=== PATIENT | female | born 2000 | race Two or more races ===

== ENCOUNTER 2021-09-17 03:35 | Inpatient (IN) | payer MEDICAID ==
[~2021-09-17] VITALS: Ht 162.6 cm; Wt 77.6 kg
[2021-09-17] MEDS ORDERED: PREN-96 PO (04:03)
[2021-09-17] MEDS ORDERED: PROMETHAZINE HCL 25 MG/ML 1ML IV PRN ×2 (05:15)
[2021-09-17] MEDS ORDERED: BUTORPHANOL TARTRATE 2 MG/1 ML VIAL IV PRN ×4 (05:15)
[2021-09-17] MEDS ORDERED: LACT. RINGERS/OXYTOCIN 20UNITS 500 ML IV ONE ×2 (05:15→05:45)
[2021-09-17] MEDS ORDERED: DERMOPLAST 60ML BOTTLE TOP PRN ×2 (05:15)
[2021-09-17] MEDS ORDERED: LIDOCAINE 2%HCL (LOCAL ANESTH.) INJ 10ml MDV IJ PRN ×2 (05:15)
[2021-09-17] MEDS ORDERED: WITCH HAZEL-GLYCERIN PAD TOP PRN ×2 (05:15)
[2021-09-17] MEDS ORDERED: PHISODERM TOP SOLN 240ML BTL TOP PRN ×2 (05:15)
[2021-09-17] MEDS ORDERED: LACTATED RINGER'S 1,000 ML IV SCH (05:15)
[2021-09-17 05:20] LABS: Basophils # (auto) 0.1 10 ^3/uL (0-0.2); Basophils % (auto) 0.7 % (0.0-2.0); Eosinophils # (auto) 0 10 ^3/uL (0-0.8); Eosinophils % (auto) 0.5 % (0.0-7.0); Hematocrit 38.5 % (36.0-46.0); Hemoglobin 13.4 g/dL (12.2-16.2); Lymphocytes # (auto) 2.2 10 ^3/uL (0.4-5.4); Lymphocytes % (auto) 23.2 % (10.0-50.0); Mean Corpuscular Hemoglobin 31.5 pg (28.0-32.0); Mean Corpuscular Hgb Conc. 34.7 g/dL (32.0-36.0); Mean Corpuscular Volume 90.6 fL (80.0-100.0); Monocytes # (auto) 0.7 10 ^3/uL (0-1.3); Monocytes % (auto) 7.7 % (0.0-12.0); Neutrophils # (auto) 6.6 10 ^3/uL (1.6-8.6); Neutrophils % (auto) 67.9 % (37.0-80.0); Nucleated Red Blood Cells % 0.1 %; Red Blood Cells 4.25 10^6/uL (4.0-5.20); Red Cell Distribution Width 13.7 % (11.8-14.3); White Blood Cell 9.7 10^3/uL (4.4-10.8)
[2021-09-17] MEDS ORDERED: miSOPROStol 50 MCG per PRE-CUT 1/2 TAB PO PRN (05:30)
[2021-09-17] MEDS: LACTATED RINGER'S 1,000 ML IV SCH ×3 (05:40→17:04)
[2021-09-17 05:59] LABS: Albumin 2.5 g/dL (3.4-5.0); BUN/Creatinine Ratio 12.8; Calcium 8.6 mg/dL (8.5-10.1); Potassium 4.3 mmol/L (3.5-5.1)
[2021-09-17 06:01] LABS: Alcohol, Urine < 3.0 mg/dL (0-10); Amphetamine Screen, Urine NEGATIVE (NEGATIVE); Barbiturate Scree,Urine NEGATIVE (NEGATIVE); Benzodiazephine Screen, Urine NEGATIVE (NEGATIVE); Cannabinoid Screen, Urine POSITIVE (NEGATIVE); Cocaine Screen, Urine NEGATIVE (NEGATIVE); Opiate Scree,Urine NEGATIVE (NEGATIVE); Phencyclidine Screen, Urine NEGATIVE (NEGATIVE)
[2021-09-17 06:02] LABS: Bilirubin, Total 0.2 mg/dL (0.2-1.0); Total Protein 6.7 g/dL (6.4-8.2)
[2021-09-17 06:14] LABS: Protein, Urine 26.7 mg/dL (0.0-11.9)
[2021-09-17 06:16] LABS: Uric Acid 6.3 mg/dL (2.6-6.0)
[2021-09-17 06:25] LABS: Urine Bacteria FEW /hpf (None Seen); Urine Blood Negative /uL (Negative); Urine Mucus FEW (None Seen); Urine WBC 15 /hpf (0 - 5)
[2021-09-17] MEDS ORDERED: LABETALOL HCL 200 MG TAB PO SCH ×2 (07:00→10:00)
[2021-09-17 07:30] LABS: INR 0.89 (0.9-1.15); Partial Thromboplastin Time 29.7 sec (23.6-33.0)
[2021-09-17] MEDS ORDERED: fentaNYL CITRATE 100 MCG/2 ML VL IV ONE (09:30)
[2021-09-17] MEDS ORDERED: ROPIVACAINE HCL 200 ML EPI SCH ×2 (09:30→11:30)
[2021-09-17] MEDS ORDERED: LACTATED RINGER'S 1,000 ML IV ONE (09:30)
[2021-09-17] MEDS ORDERED: ePHEDrine SULFATE 50 MG/ML AMP IV ONE (09:30)
[2021-09-17] MEDS ORDERED: NALOXONE HCL 0.4 MG/ML VIAL IV ONE (09:30)
[2021-09-17] MEDS ORDERED: TERBUTALINE SULFATE 1 MG/ML 1ML VIAL SC PRN (13:30)
[2021-09-17] MEDS ORDERED: LACT. RINGERS/OXYTOCIN 20UNITS 1,000 ML IV SCH (13:30)
[2021-09-18] MEDS ORDERED: GENTAMICIN SULF 80 MG/2 ML VIAL ONE (00:40)
[2021-09-18] MEDS ORDERED: GENTAMICIN SULFATE 120 MG in D5W 5% 100 ML IV ONE (00:45)
[2021-09-18] MEDS ORDERED: ACETAMINOPHEN 325 MG TAB PO ONE (00:45)
[2021-09-18] MEDS ORDERED: AMPICILLIN SOD 2GM INJ 2 GM in SODIUM CHL 0.9% 100 ML IV SCH ×2 (00:45→08:00)
[2021-09-18] MEDS ORDERED: AMPICILLIN SOD 1 GM VL ONE (00:47)
[2021-09-18] MEDS ORDERED: SODIUM CHLORIDE LOCK 10 ML ONE (00:48)
[2021-09-18] MEDS ORDERED: METHYLERGONOVINE MALEATE 0.2 MG/ML AMP IM ONE (03:08)
[2021-09-18] MEDS ORDERED: miSOPROStol 100 mcg TAB PR PRN (03:15)
[2021-09-18] MEDS ORDERED: miSOPROStol 100 mcg TAB SL PRN (03:15)
[2021-09-18] MEDS ORDERED: METHYLERGONOVINE MALEATE 0.2 MG/ML AMP IM PRN (03:15)
[2021-09-18] MEDS ORDERED: ONDANSETRON HCL 4 MG/2 ML VIAL ONE (04:02)
[2021-09-18] MEDS ORDERED: ONDANSETRON HCL 4 MG/2 ML VIAL IV PRN (04:15)
[2021-09-18] MEDS ORDERED: ACETAMINOPHEN 325 MG TAB PO PRN (06:00)
[2021-09-18] MEDS ORDERED: ONDANSETRON ODT 4 MG TAB PO PRN (06:00)
[2021-09-18 06:40] VITALS: BP 129/68
[2021-09-18] MEDS: IBUPROFEN 600 MG TAB PO PRN ×3 (08:05→20:59)
[2021-09-18] MEDS ORDERED: SOD CHL 0.45% 1,000 ML IV SCH (08:45)
[2021-09-18 11:00] VITALS: BP 116/78
[2021-09-18 15:00] VITALS: BP 113/73
[2021-09-18 19:00] VITALS: BP 107/74
[2021-09-18 23:08] VITALS: BP 109/74
[2021-09-19 02:43] VITALS: BP 121/74
[2021-09-19] MEDS ORDERED: IBU600T PO (05:43)
[2021-09-19 06:45] VITALS: BP 113/63
[2021-09-19] MEDS: IBUPROFEN 600 MG TAB PO PRN (08:22)
[2021-09-19 11:30] VITALS: BP 108/72
[2021-09-19] MEDS ORDERED: TETANUS-DIPTH-ACEL PERTUSSIS 0.5ML SYR Tdap IM ONE (11:30)
[2021-09-19] MEDS ORDERED: miSOPROStol 100 mcg TAB PO ONE (14:09)
[2021-09-19 14:10] VITALS: BP 108/72
== END 2021-09-19 14:10 | disposition home or self-care (01) | DRG 560 ==
LOC: LDRP 03:35 → OBSVTOIN 05:14 → LDRP 05:52
PROVIDERS: ADMIT Obstetrics & Gynecology Obstetrics; ATTEND Obstetrics & Gynecology Obstetrics
PROC: 3E0DXGC Introduction of Other Therapeutic Substance into Mouth and Pharynx, External Approach (ICD-10-PCS; 2021-09-17)
PROC: 10E0XZZ Delivery of Products of Conception, External Approach (ICD-10-PCS; principal; 2021-09-18)
PROC: 3E0R3BZ Introduction of Anesthetic Agent into Spinal Canal, Percutaneous Approach (ICD-10-PCS; 2021-09-18)
PROC: 00HU33Z Insertion of Infusion Device into Spinal Canal, Percutaneous Approach (ICD-10-PCS; 2021-09-18)
DX: O13.4 Gestational [pregnancy-induced] hypertension without significant proteinuria, complicating childbirth (principal); Z37.0 Single live birth; O41.1230 Chorioamnionitis, third trimester, not applicable or unspecified; O99.42 Diseases of the circulatory system complicating childbirth; O76 Abnormality in fetal heart rate and rhythm complicating labor and delivery; O69.81X0 Labor and delivery complicated by cord around neck, without compression, not applicable or unspecified; Z3A.39 39 weeks gestation of pregnancy; Z20.822 Contact with and (suspected) exposure to COVID-19
CPT/HCPCS: 36415; 59025; 59409; 62282; 80053; 80307; 81001; 81002; 82570; 83615; 84156; 84550; 85025; 85362; 85379; 85384; 85610; 85730; 86762; 86850; 86900; 86901; 87340; 90715; 94760; 96360; 96361; 96366; 96372; 96374; 96375; G0378; J2001; J2405; J2590; J7060

== ENCOUNTER 2022-10-03 00:53 | Inpatient (IN) | payer MEDICAID ==
[~2022-10-03] VITALS: Ht 162.6 cm; Wt 80.7 kg
[~2022-10-03 00:53] MED LIST: IBU600T PO; PREN-96 PO
[2022-10-03] MEDS ORDERED: LACTATED RINGER'S 1,000 ML IV ONE ×2 (01:15→03:30)
[2022-10-03] MEDS ORDERED: LACTATED RINGER'S 1,000 ML IV SCH ×2 (01:15→01:45)
[2022-10-03] MEDS ORDERED: PENICILLIN G POT 5MIL/D5 50ML 50 ML IV ONE ×2 (01:40→01:45)
[2022-10-03] MEDS ORDERED: WITCH HAZEL-GLYCERIN PAD TOP PRN (01:45)
[2022-10-03] MEDS ORDERED: PROMETHAZINE HCL 25 MG/ML 1ML IV PRN (01:45)
[2022-10-03] MEDS ORDERED: DERMOPLAST 60ML BOTTLE TOP PRN (01:45)
[2022-10-03] MEDS ORDERED: BUTORPHANOL TARTRATE 2 MG/1 ML VIAL IV PRN ×2 (01:45)
[2022-10-03] MEDS ORDERED: PHISODERM TOP SOLN 240ML BTL TOP PRN (01:45)
[2022-10-03] MEDS ORDERED: LACT. RINGERS/OXYTOCIN 20UNITS 500 ML IV ONE ×3 (01:45→05:45)
[2022-10-03] MEDS ORDERED: LIDOCAINE 2%HCL (LOCAL ANESTH.) INJ 20ML MDV IJ PRN (01:45)
[2022-10-03] MEDS ORDERED: miSOPROStol 100 mcg TAB SL PRN (02:00)
[2022-10-03 02:21] LABS: Urine Bacteria FEW /hpf (None Seen); Urine Mucus FEW (None Seen); Urine WBC 61 /hpf (0 - 5)
[2022-10-03 02:22] LABS: Urine Blood Trace /uL (Negative); Urine Specific Gravity 1.025 (1.001-1.035)
[2022-10-03 02:25] LABS: Albumin 2.3 g/dL (3.4-5.0); Calcium 8.7 mg/dL (8.5-10.1); Eosinophils # (auto) 0.1 10 ^3/uL (0-0.8); Lymphocytes # (auto) 1.8 10 ^3/uL (0.4-5.4); Lymphocytes % (auto) 18.6 % (10.0-50.0); Nucleated Red Blood Cells % 0.1 %
[2022-10-03 02:26] LABS: Alcohol, Urine < 3.0 mg/dL (0-10); Amphetamine Screen, Urine POSITIVE (NEGATIVE); Barbiturate Scree,Urine NEGATIVE (NEGATIVE); Benzodiazephine Screen, Urine NEGATIVE (NEGATIVE); Cannabinoid Screen, Urine POSITIVE (NEGATIVE); Cocaine Screen, Urine NEGATIVE (NEGATIVE)
[2022-10-03 02:27] LABS: Basophils # (auto) 0.2 10 ^3/uL (0-0.2); Basophils % (auto) 1.7 % (0.0-2.0); Bilirubin, Total 0.3 mg/dL (0.2-1.0); Eosinophils % (auto) 0.8 % (0.0-7.0); Hematocrit 32.7 % (36.0-46.0); Hemoglobin 10.8 g/dL (12.2-16.2); Mean Corpuscular Hemoglobin 26.4 pg (28.0-32.0); Mean Corpuscular Hgb Conc. 33.1 g/dL (32.0-36.0); Mean Corpuscular Volume 79.6 fL (80.0-100.0); Monocytes # (auto) 0.6 10 ^3/uL (0-1.3); Monocytes % (auto) 5.8 % (0.0-12.0); Neutrophils # (auto) 7.1 10 ^3/uL (1.6-8.6); Neutrophils % (auto) 73.1 % (37.0-80.0); Red Blood Cells 4.11 10^6/uL (4.0-5.20); Red Cell Distribution Width 16.2 % (11.8-14.3); Total Protein 6.5 g/dL (6.4-8.2); White Blood Cell 9.7 10^3/uL (4.4-10.8)
[2022-10-03 02:30] LABS: INR 0.91 (0.9-1.15); Partial Thromboplastin Time 26.3 sec (24.6-33.4)
[2022-10-03 02:34] LABS: Opiate Scree,Urine NEGATIVE (NEGATIVE); Phencyclidine Screen, Urine NEGATIVE (NEGATIVE)
[2022-10-03] MEDS ORDERED: LIDOCAINE HCL 2 %PF INJ 10ML AMP IJ ONE (03:30)
[2022-10-03] MEDS ORDERED: ROPIVACAINE HCL 200 ML EPI SCH (03:30)
[2022-10-03] MEDS ORDERED: fentaNYL CITRATE 100 MCG/2 ML VL IV ONE (03:30)
[2022-10-03] MEDS ORDERED: BETAMETHASONE ACET (30mg/5ml) 5ml Vial 6mg/ml IM ONE (03:30)
[2022-10-03] MEDS ORDERED: NALOXONE HCL 0.4 MG/ML VIAL IV ONE (03:30)
[2022-10-03] MEDS ORDERED: ePHEDrine SULFATE 50 MG/ML AMP IV ONE (03:30)
[2022-10-03] MEDS ORDERED: AMMONIA 0.33 ML INHALANT IN ONE (04:48)
[2022-10-03] MEDS ORDERED: ACETAMINOPHEN 325 MG TAB PO PRN (05:15)
[2022-10-03] MEDS ORDERED: IBUPROFEN 600 MG TAB PO PRN (05:15)
[2022-10-03] MEDS ORDERED: LACT. RINGERS/OXYTOCIN 20UNITS 1,000 ML IV SCH (05:45)
[2022-10-03] MEDS ORDERED: PENICILLIN G POTASSIUM 2,500,000 UNITS in D5W 5% 50 ML IV SCH (05:45)
[2022-10-03 07:15] VITALS: BP 105/70
[2022-10-03 11:15] VITALS: BP 110/66
[2022-10-03 14:54] VITALS: BP 110/63
[2022-10-03 19:00] VITALS: BP 117/64
[2022-10-04 03:15] VITALS: BP 112/68
[2022-10-04 07:15] VITALS: BP 114/82
[2022-10-04] MEDS ORDERED: TETANUS-DIPTH-ACEL PERTUSSIS 0.5ML SYR Tdap IM ONE (07:15)
[2022-10-04 08:06] LABS: RPR Non Reactive (Non Reactive); Rubella Antibodies, IgG 1.55 index (Immune >0.99)
[2022-10-04 11:13] VITALS: BP 119/93
== END 2022-10-04 11:25 | disposition home or self-care (01) | DRG 560 ==
LOC: LDRP 00:53 → OBSVTOIN 01:42 → LDRP 08:28
PROVIDERS: ADMIT Obstetrics & Gynecology; ATTEND Obstetrics & Gynecology
PROC: 10E0XZZ Delivery of Products of Conception, External Approach (ICD-10-PCS; principal; 2022-10-03)
PROC: 0UQMXZZ Repair Vulva, External Approach (ICD-10-PCS; 2022-10-03)
DX: O60.14X0 Preterm labor third trimester with preterm delivery third trimester, not applicable or unspecified (principal); Z37.0 Single live birth; F15.90 Other stimulant use, unspecified, uncomplicated; Z3A.35 35 weeks gestation of pregnancy; F19.90 Other psychoactive substance use, unspecified, uncomplicated; O71.82 Other specified trauma to perineum and vulva
CPT/HCPCS: 36415; 59025; 59409; 76805; 80053; 80307; 81001; 81002; 85025; 85610; 85730; 86592; 86703; 86762; 86850; 86900; 86901; 87340; 90715; 94760; 96360; 96361; 96365; 96366; 96372; G0378; J2540; J2590; J7060

== ENCOUNTER 2023-06-05 06:09 | Inpatient (IN) | payer MEDICAID ==
[~2023-06-05] VITALS: Ht 152.4 cm; Wt 82.0 kg
[2023-06-05 07:40] VITALS: PULSE 112; RESP 24; O2SAT 99
[2023-06-05] MEDS ORDERED: ONDANSETRON HCL 4 MG/2 ML VIAL IV ONE (08:30)
[2023-06-05] MEDS ORDERED: LIDOCAINE 1% HCL (LOCAL ANESTH.) INJ 20ML MDV IJ ONE ×2 (08:30)
[2023-06-05] MEDS ORDERED: MORPHINE SULFATE 4 MG/ML SYR/VIAL IV ONE (08:30)
[2023-06-05] MEDS ORDERED: ACETAMINOPHEN 325 MG TAB PO PRN (09:45)
[2023-06-05] MEDS ORDERED: DOCUSATE SOD 100 MG CAP PO PRN (09:45)
[2023-06-05] MEDS ORDERED: HYDROcodone-ACET 5/325MG TAB PO PRN (09:45)
[2023-06-05 10:13] LABS: Basophils # (auto) 0 10 ^3/uL (0-0.2); Basophils % (auto) 0.4 % (0.0-2.0); Eosinophils # (auto) 0 10 ^3/uL (0-0.8); Eosinophils % (auto) 0.3 % (0.0-7.0); Hematocrit 43.9 % (36.0-46.0); Hemoglobin 14.8 g/dL (12.2-16.2); Lymphocytes # (auto) 1.9 10 ^3/uL (0.4-5.4); Lymphocytes % (auto) 15.9 % (10.0-50.0); Mean Corpuscular Hemoglobin 31.2 pg (28.0-32.0); Mean Corpuscular Hgb Conc. 33.7 g/dL (32.0-36.0); Mean Corpuscular Volume 92.7 fL (80.0-100.0); Monocytes # (auto) 0.8 10 ^3/uL (0-1.3); Monocytes % (auto) 6.5 % (0.0-12.0); Neutrophils # (auto) 9.2 10 ^3/uL (1.6-8.6); Neutrophils % (auto) 76.9 % (37.0-80.0); Red Blood Cells 4.74 10^6/uL (4.0-5.20); Red Cell Distribution Width 14.6 % (11.8-14.3)
[2023-06-05 10:17] LABS: INR 1.02 (0.9-1.15); Prothrombin Time 10.7 sec (9.3-11.8)
[2023-06-05 10:29] LABS: Alanine Aminotransferase 47 U/L (7-40); Albumin 4.6 g/dL (3.2-4.8); Alkaline Phosphatase 117 U/L (46-116); Anion Gap 7 (5-15); Aspartate Aminotransferase 31 U/L (13-40); BUN/Creatinine Ratio 10.3 (10.0-20.0); Blood Urea Nitrogen 6 mg/dL (9-23); Carbon Dioxide 22 mmol/L (20-30); Chloride 110 mmol/L (98-107); Glucose 96 mg/dL (74-106); Magnesium 1.9 mg/dL (1.6-2.6); Potassium 3.9 mmol/L (3.5-5.1); Sodium 139 mmol/L (136-145)
[2023-06-05 10:31] LABS: Bilirubin, Total 0.9 mg/dL (0.2-1.0); Total Protein 7.1 g/dL (5.7-8.2)
[2023-06-05 13:51] LABS: COVID19 ANTIGEN SOFIA FIA NEGATIVE (NEGATIVE)
[2023-06-05] MEDS: ONDANSETRON HCL 4 MG/2 ML VIAL IV PRN ×2 (14:45→20:21)
[2023-06-05] MEDS: HYDROmorphone HCL 2 MG/ML VL/or syr IV PRN ×2 (14:48→20:21)
[2023-06-05] MEDS: SODIUM CHLOR 0.9% PF (SALINE LOCK) 10ML VIAL/SYR IV SCH ×2 (14:49→21:11)
[2023-06-05 14:58] VITALS: PULSE 110; RESP 16; O2SAT 95
[2023-06-05 19:58] VITALS: PULSE 91; RESP 19; O2SAT 100
[2023-06-06] VITALS (8 sets, daily range): BP systolic 120–157; BP diastolic 79–85; PULSE 103–116; RESP 15–22; TEMP 97.7–98.9; O2SAT 93–98
[2023-06-06] MEDS: HYDROmorphone HCL 2 MG/ML VL/or syr IV PRN ×3 (00:34→09:31)
[2023-06-06] MEDS: ONDANSETRON HCL 4 MG/2 ML VIAL IV PRN ×2 (00:34→04:51)
[2023-06-06] MEDS: SODIUM CHLOR 0.9% PF (SALINE LOCK) 10ML VIAL/SYR IV SCH ×3 (06:12→22:00)
[2023-06-06] MEDS ORDERED: PROPOFOL 10 MG/ML 20 ML IV ONE (11:38)
[2023-06-06] MEDS ORDERED: fentaNYL CITRATE 100 MCG/2 ML VL ONE ×2 (11:39→13:15)
[2023-06-06] MEDS ORDERED: ceFAZolin 2 GM/D5W100ml 100 ML IV ONE (12:29)
[2023-06-06] MEDS ORDERED: ROPIVACAINE 0.5% (5MG/ML) 20ML AMPULE IJ ONE (12:45)
[2023-06-06] MEDS ORDERED: DexAMETHasone SOD PHOS 10MG/1ML VIAL INJ ONE (12:54)
[2023-06-06] MEDS ORDERED: ONDANSETRON HCL 4 MG/2 ML VIAL ONE (12:54)
[2023-06-06] MEDS ORDERED: MEPERIDINE HCL (50 MG/ML) 1 ML VIAL ONE (12:55)
[2023-06-06] MEDS ORDERED: MEPERIDINE HCL (25 MG/ML) 1ML VIAL ONE (14:11)
[2023-06-06] MEDS ORDERED: HYDROmorphone HCL 2 MG/ML VL/or syr IV PRN (15:15)
[2023-06-06] MEDS ORDERED: ONDANSETRON HCL 4 MG/2 ML VIAL IV PRN (15:15)
[2023-06-06] MEDS ORDERED: MEPERIDINE HCL (25 MG/ML) 1ML VIAL IV PRN (15:15)
[2023-06-06] MEDS: HYDROcodone-ACET 10/325MG TAB PO PRN (23:08)
[2023-06-07 05:00] VITALS: BP 108/67; PULSE 109; RESP 19; TEMP 98.8; O2SAT 95
[2023-06-07] MEDS: SODIUM CHLOR 0.9% PF (SALINE LOCK) 10ML VIAL/SYR IV SCH ×3 (06:00→22:00)
[2023-06-07] MEDS: HYDROcodone-ACET 10/325MG TAB PO PRN ×3 (06:27→20:14)
[2023-06-07 09:00] VITALS: BP 118/66; PULSE 106; RESP 18; TEMP 97.8; O2SAT 92
[2023-06-07 12:45] VITALS: BP 110/64; PULSE 113; RESP 18; TEMP 98.1; O2SAT 95
[2023-06-07] MEDS: HYDROmorphone HCL 2 MG/ML VL/or syr IV PRN (13:15)
[2023-06-07] MEDS ORDERED: KETOROLAC TROMETH 30 MG/ML 1ML VIAL IV ONE (14:15)
[2023-06-07] MEDS ORDERED: HYDROmorphone HCL 2 MG/ML VL/or syr IV PRN (15:00)
[2023-06-07] MEDS: BACLOFEN 10 MG TAB PO PRN (15:50)
[2023-06-07 17:01] VITALS: BP 108/75; PULSE 103; RESP 20; TEMP 97.7; O2SAT 97
[2023-06-07 20:00] VITALS: PULSE 97; RESP 18
[2023-06-07 22:00] VITALS: BP 132/72; PULSE 97; RESP 17; TEMP 97.6; O2SAT 99
[2023-06-08] MEDS: HYDROcodone-ACET 10/325MG TAB PO PRN ×3 (01:14→12:13)
[2023-06-08 05:00] VITALS: BP_SYST 102; BP_SYST 111; BP_DIAS 64; BP_DIAS 70; PULSE 82; PULSE 98; RESP 16; RESP 17; TEMP 97.7; TEMP 98.2; O2SAT 93; O2SAT 98
[2023-06-08] MEDS: BACLOFEN 10 MG TAB PO PRN (06:43)
[2023-06-08] MEDS: SODIUM CHLOR 0.9% PF (SALINE LOCK) 10ML VIAL/SYR IV SCH ×2 (08:32→16:30)
[2023-06-08 08:40] VITALS: BP 126/72; PULSE 95; RESP 20; TEMP 97.9; O2SAT 98
[2023-06-08 12:35] VITALS: BP 124/88; PULSE 89; RESP 20; TEMP 97.9; O2SAT 97
[2023-06-08] MEDS ORDERED: NALO4SPR2 (12:50)
[2023-06-08] MEDS ORDERED: HYDR-4798 PO (12:50)
[2023-06-08] MEDS ORDERED: BACL10TA PO (12:50)
== END 2023-06-08 16:55 | disposition home health service (06) | DRG 313 ==
LOC: ER 06:09 → OVERFLOW 09:35 → WEST WING 06-06 09:35
PROVIDERS: ADMIT Internal Medicine; ATTEND Nurse Practitioner
PROC: 0QSK04Z Reposition Left Fibula with Internal Fixation Device, Open Approach (ICD-10-PCS; principal; 2023-06-06 12:45)
DX: S82.842A Displaced bimalleolar fracture of left lower leg, initial encounter for closed fracture (principal); E66.01 Morbid (severe) obesity due to excess calories; S82.52XA Displaced fracture of medial malleolus of left tibia, initial encounter for closed fracture; S82.402A Unspecified fracture of shaft of left fibula, initial encounter for closed fracture; S92.109A Unspecified fracture of unspecified talus, initial encounter for closed fracture; Z20.822 Contact with and (suspected) exposure to COVID-19; I10 Essential (primary) hypertension; W18.39XA Other fall on same level, initial encounter; Y93.89 Activity, other specified; Y92.89 Other specified places as the place of occurrence of the external cause; Y99.8 Other external cause status; Z68.35 Body mass index [BMI] 35.0-35.9, adult
CPT/HCPCS: 36415; 73600; 73610; 73630; 76000; 80053; 83735; 84702; 85025; 85610; 86850; 86900; 86901; 87426; 93971; 97110; 97116; 97163; 97530; G0378; J1100; J1885; J2001; J2405; J2704

== ENCOUNTER 2023-06-20 22:21 | Emergency (ER) | payer MEDICAID ==
[~2023-06-20 22:21] MED LIST changes: +BACL10TA PO; +HYDR-4798 PO; +NALO4SPR2; -PREN-96 PO
[2023-06-21] MEDS ORDERED: PERCOT PO (19:33)
== END 2023-06-20 23:56 | disposition left against medical advice (07) ==
LOC: ER 22:21
DX: T88.9XXA Complication of surgical and medical care, unspecified, initial encounter (principal); Z53.21 Procedure and treatment not carried out due to patient leaving prior to being seen by health care provider

== ENCOUNTER 2023-06-21 16:41 | Emergency (ER) | payer MEDICAID ==
[~2023-06-21] VITALS: Ht 162.6 cm; Wt 82.3 kg
[2023-06-21] MEDS: OXYCODONE W/ ACETAMINOPHEN 5/325MG TABLET PO ONE (18:55)
[2023-06-21] MEDS ORDERED: PERCOT PO (19:33)
[2023-06-21 21:24] VITALS: BP 120/84; PULSE 98; RESP 16; TEMP 98.9; O2SAT 96
== END 2023-06-21 21:27 | disposition home or self-care (01) ==
LOC: ER 16:41
DX: G89.18 Other acute postprocedural pain (principal); M25.572 Pain in left ankle and joints of left foot
CPT/HCPCS: 29515; 73610